=== PATIENT | female | born 1985 | race African-American/Black ===

== ENCOUNTER 2022-08-25 11:35 | Emergency (ER) | payer OTHER ==
[~2022-08-25] VITALS: Ht 175.3 cm; Wt 4.5 kg
[~2022-08-25 11:35] MED LIST: FOLIC ACID; IRON
[2022-08-25 11:39] VITALS: BP 120/91
--- NOTE | 2022-08-25 12:38 | NUR ---
Pt bibs due to not having a cycle in 2 months. Pt states she has taken preg tests and they have all resulted as negative. Pt denies pain. Pt a/o x 4, vss, no ss of acute distress, breathing equal and unlabored, speech clear.
[2022-08-25 13:14] VITALS: BP 119/87
--- NOTE | 2022-08-25 13:16 | NUR ---
Patient discharged with v/s stable. Written and verbal after care instructions given and explained. Patient verbalized understanding. Ambulatory with steady gait. All questions addressed prior to discharge. Advised to follow up with PMD.
== END 2022-08-25 13:14 | disposition home or self-care (01) ==
LOC: MED 11:35
DX: N91.2 Amenorrhea, unspecified (principal); Z88.1 Allergy status to other antibiotic agents; Z88.8 Allergy status to other drugs, medicaments and biological substances; Z79.899 Other long term (current) drug therapy
CPT/HCPCS: 81025; 99282